=== PATIENT | female | born 1935 | race Two or more races ===

== ENCOUNTER → 2020-05-15 | Outpatient (CLI) | payer OTHER ==
[~2020-05-15] VITALS: Ht 152.4 cm; Wt 67.6 kg
[~2020-05-15] MED LIST: FOLIC PO; HORIZANT300 MG PO; LIPIT PO; MAGNESIUM500 MG PO; VITAMIN D3 PO; ZANTAC PO; ZYRTEC10 M3 PO
== END | disposition home or self-care (01) ==
LOC: LAB 07:00 → EDSTATUS 05-19 09:30 → O/R 05-19 09:30
PROVIDERS: ATTEND Orthopaedic Surgery
DX: M17.11 Unilateral primary osteoarthritis, right knee (principal); Z01.810 Encounter for preprocedural cardiovascular examination; Z01.812 Encounter for preprocedural laboratory examination; Z01.811 Encounter for preprocedural respiratory examination

== ENCOUNTER 2020-06-23 07:00 | Inpatient (IN) | payer OTHER ==
[~2020-06-23] VITALS: Ht 170.2 cm; Wt 68.0 kg
[~2020-06-23 07:00] MED LIST changes: -ZANTAC PO; -ZYRTEC10 M3 PO
[2020-06-23] MEDS ORDERED: ZANTAC PO (08:43)
[2020-06-23] MEDS ORDERED: ZYRTEC10 M3 PO (08:44)
[2020-06-30] MEDS ORDERED: LIPITOR20 MG PO (07:54)
[2020-06-30] MEDS ORDERED: MAGNESIUM400 M1 PO (07:55)
[2020-06-30] MEDS ORDERED: CALCIUM CARBON600 MG PO (07:56)
[2020-06-30] MEDS ORDERED: VITAMIN D375 MCG PO (07:58)
[2020-06-30] MEDS ORDERED: ZANTAC25 MG/1 ML (08:00)
[2020-06-30] MEDS ORDERED: FOLIC ACID1 MG PO (08:01)
[2020-07-03] MEDS ORDERED: CEFADROXIL500 MG PO (07:53)
[2020-07-03] MEDS ORDERED: ELIQUIS2.5 MG PO (07:53)
[2020-07-03] MEDS ORDERED: PERCOCET 5-3251 EACH PO (07:53)
== END 2020-07-04 00:05 | DRG 470 ==
LOC: O/R 06-30 05:28 → SURH 06-30 05:28
PROVIDERS: ADMIT Orthopaedic Surgery; ATTEND Orthopaedic Surgery
PROC: 0MNN0ZZ Release Right Knee Bursa and Ligament, Open Approach (ICD-10-PCS; 2020-06-30)
PROC: 0QUG0KZ Supplement Right Tibia with Nonautologous Tissue Substitute, Open Approach (ICD-10-PCS; 2020-06-30)
PROC: 0SRC0JZ Replacement of Right Knee Joint with Synthetic Substitute, Open Approach (ICD-10-PCS; principal; 2020-06-30 09:45)
PROC: 30233N1 Transfusion of Nonautologous Red Blood Cells into Peripheral Vein, Percutaneous Approach (ICD-10-PCS; 2020-07-01)
DX: M17.11 Unilateral primary osteoarthritis, right knee (principal); D62 Acute posthemorrhagic anemia; M22.11 Recurrent subluxation of patella, right knee; M21.061 Valgus deformity, not elsewhere classified, right knee; M85.661 Other cyst of bone, right lower leg; M11.261 Other chondrocalcinosis, right knee; M81.0 Age-related osteoporosis without current pathological fracture